=== PATIENT | female | born 1935 | race Caucasian/White ===

== ENCOUNTER 2017-02-26 19:30 | Emergency (ER) | payer MEDICARE, BC ==
[2017-02-26] MEDS ORDERED: Ketorolac 30 MG/ML SDV IM ONE (19:42)
[2017-02-26] MEDS ORDERED: Cyclobenzaprine 10 MG Tab PO ONE (20:39)
[2017-02-26] MEDS ORDERED: Take Home: Cyclobenzaprine 10 MG Tab, 4 Tab Pack PO ONE (21:20)
--- NOTE | 2017-02-26 21:20 | EDM.PDOC ---
ED HPI GENERAL MEDICAL PROBLEM - General Chief Complaint: Lower Extremity Injury/Pain Stated Complaint: right hip pain Time Seen by Provider: 02/26/17 19:32 Source of Information: Reports: Patient, Family History Limitations: Reports: No Limitations - History of Present Illness INITIAL COMMENTS - FREE TEXT/NARRATIVE: Patient arrives in the emergency room via private vehicle driven by her . She did have a right hip replacement 2 weeks ago. She states she has not had any problems since her operation. She has not been taking any pain medications due to it making her nauseous. She reports that she suddenly had extreme right hip pain that went down her leg laterally to about her knee. She is doing physical therapy and was told that she has pretty tight hamstrings. She rates her pain a 10 out of 10. She denies headache, shortness of breath, chills, fever, redness or swelling to her right hip surgical area, she reports no drainage or opening of her incision. She has a difficult time arising out of a chair and walking. Onset: Today, Sudden Location: Reports: Upper Extremity, Right Quality: Reports: Ache, Sharp Severity: Severe Improves with: Reports: Rest Worsens with: Reports: Movement Associated Symptoms: Reports: No Other Symptoms - Related Data Allergies Allergy/AdvReac Type Severity Reaction Status Date / Time adhesive Allergy Rash Verified 02/26/17 20:11 Home Meds: Home Meds Cholecalciferol (Vitamin D3) [Vitamin D3] 2,000 unit PO DAILY 06/04/13 [History] Enalapril [Vasotec] 1.5 tab PO DAILY 06/04/13 [History] Lansoprazole [Prevacid] 15 mg PO DAILY 06/04/13 [History] Latanoprost [Xalatan 0.005% Ophth Soln] 1 drop EYEBOTH ACBED 06/04/13 [History] Metoprolol Tartrate [Lopressor] 25 mg PO BID 06/04/13 [History] Multivitamin [Multi Vitamin Daily] 1 each PO DAILY 06/04/13 [History] [place]-3 Fatty Acids [[place]-3] 1,000 mg PO DAILY 06/04/13 [History] PEG 400/Propylene Glycol [Systane 0.4-0.3%] 1 drop EYEBOTH Q4H PRN 06/04/13 [ History] Anastrozole [Arimidex] 1 mg PO DAILY 02/18/17 [History] Apixaban [Eliquis] 1 tab PO DAILY 02/18/17 [History] Polyethylene Glycol 3350 [MiraLAX] 17 gm PO DAILY PRN 02/18/17 [History] oxyCODONE HCl [Oxycodone HCl] 5 mg PO ASDIRECTED PRN 02/18/17 [History] Past Medical History Cardiovascular History: Reports: Afib Genitourinary History: Reports: Chronic Renal Insuffiency Neurological History: Reports: Parkinson's Oncologic (Cancer) History: Reports: Breast Other Oncologic History: lymphedema - Past Surgical History Musculoskeletal Surgical History: Reports: Hip Replacement Social & Family History - Tobacco Use Smoking Status *Q: Never Smoker - Alcohol Use Days Per Week of Alcohol Use: 0 - Recreational Drug Use Recreational Drug Use: No Review of Systems - Review of Systems Review Of Systems: ROS reveals no pertinent complaints other than HPI. ED EXAM, GENERAL - Physical Exam Exam: See Below Exam Limited By: No Limitations General Appearance: Alert, WD/WN, Moderate Distress Ears: Normal External Exam, Normal Canal, Hearing Grossly Normal, Normal TMs Head: Atraumatic, Normocephalic Neck: Normal Inspection, Supple, Non-Tender, Full Range of Motion Respiratory/Chest: No Respiratory Distress, Lungs Clear, Normal Breath Sounds, No Accessory Muscle Use, Chest Non-Tender Cardiovascular: Normal Peripheral Pulses, Regular Rate, Rhythm, No Edema, No Gallop, No JVD, No Murmur, No Rub Peripheral Pulses: 2+: Posterior Tibial (L), Posterior Tibial (R), Dorsalis Pedis (L), Dorsalis Pedis (R) GI/Abdominal: Normal Bowel Sounds, Soft, Non-Tender, No Organomegaly, No Distention, No Abnormal Bruit, No Mass Extremities: Pedal Edema Neurological: Alert, Oriented, CN II-XII Intact, Normal Cognition, Normal Gait, Normal Reflexes, No Motor/Sensory Deficits Psychiatric: Normal Affect, Normal Mood Skin Exam: Warm, Dry, Intact, Normal Color, No Rash, Other (wound is C/D/I with no erythema or edema) Lymphatic: No Adenopathy Course - Orders/Labs/Meds Orders: Active Orders 24 hr Category Date Time Status Hip Min 2V or 3V w Pelvis Rt [CR] Stat Exams 02/26/17 19:33 Ordered Meds: Medications Discontinued Medications Generic Name Dose Route Start Last Admin Trade Name Sam PRN Reason Stop Dose Admin Cyclobenzaprine HCl 10 mg 02/26/17 20:39 02/26/17 20:58 Flexeril PO 02/26/17 20:40 10 mg ONETIME ONE Administration Ketorolac Tromethamine 30 mg 02/26/17 19:42 02/26/17 20:07 Toradol IM 02/26/17 19:43 30 mg ONETIME ONE Administration Orphenadrine Citrate 60 mg 02/26/17 20:45 Norflex IM Q12H ANABEL Orphenadrine Citrate 60 mg 02/26/17 20:51 02/26/17 20:58 Norflex IM 02/26/17 20:52 60 mg ONETIME ONE Administration - Re-Assessments/Exams Free Text/Narrative Re-Assessment/Exam: 02/26/17 22:38 X-ray showed no fracture or displacement of hardware. Departure - Departure Time of Disposition: 21:30 Disposition: Home, Self-Care 01 Condition: Good Clinical Impression: Muscle spasms of lower extremity - Discharge Information Instructions: Muscle Cramps and Spasms, [id number] Additional Instructions: Your x-ray tonight did not show any fractures or loosening of your hip hardware. This is likely muscle spasms due to recent trauma from surgery. You can alternate ice and heat, use a topical analgesic like aspercreme or lidocaine patch. Visit with your physical therapist regarding additional stretches you can do for your hamstring, buttocks, and back. Make sure you are walking and moving around as much as you can tolerate. Alternate ibuprofen and tylenol. You can safely take up to 4,000 mg of tylenol daily. If needed you can take up to 800 mg of ibuprofen every 8 hours. Follow up with your primary doctor or with orthopedics as needed for additional symptom management. I have given you prescriptions for a medrol dose pack and flexeril. Take the medrol dose pack everyday until it is finished. The flexeril is for every 8 hours. Please don't hesitate to call with any questions or concerns. - Problem List & Annotations (1) Muscle spasms of lower extremity SNOMED Code(s): 20472392 Code(s): M62.838 - OTHER MUSCLE SPASM Status: Acute Current Visit: Yes Qualifiers: Laterality: right Qualified Code(s): M62.838 - Other muscle spasm - Problem List Review Problem List Initiated/Reviewed/Updated: Yes - My Orders Last 24 Hours: My Active Orders 02/26/17 19:33 Hip Min 2V or 3V w Pelvis Rt [CR] Stat - Assessment/Plan Last 24 Hours: My Active Orders 02/26/17 19:33 Hip Min 2V or 3V w Pelvis Rt [CR] Stat Assessment:: right hip muscle spasms Plan: Your x-ray tonight did not show any fractures or loosening of your hip hardware. This is likely muscle spasms due to recent trauma from surgery. You can alternate ice and heat, use a topical analgesic like aspercreme or lidocaine patch. Visit with your physical therapist regarding additional stretches you can do for your hamstring, buttocks, and back. Make sure you are walking and moving around as much as you can tolerate. Alternate ibuprofen and tylenol. You can safely take up to 4,000 mg of tylenol daily. If needed you can take up to 800 mg of ibuprofen every 8 hours. Follow up with your primary doctor or with orthopedics as needed for additional symptom management. I have given you prescriptions for a medrol dose pack and flexeril. Take the medrol dose pack everyday until it is finished. The flexeril is for every 8 hours. Please don't hesitate to call with any questions or concerns.
[2017-02-27 05:13] VITALS: BP 147/96
== END 2017-02-26 21:30 | disposition home or self-care (01) ==
LOC: VM.ED 19:30
DX: M62.838 Other muscle spasm (principal); N18.9 Chronic kidney disease, unspecified; Z96.641 Presence of right artificial hip joint; Z79.899 Other long term (current) drug therapy; Z91.048 Other nonmedicinal substance allergy status
CPT/HCPCS: 73502; 96372; 99283; A9270; J1885; J2360

== ENCOUNTER 2017-04-07 12:38 | Emergency (ER) | payer MEDICARE, BC ==
[2017-04-07 12:56] VITALS: BP 123/71
[2017-04-07] MEDS ORDERED: Take Home: Sulfamethoxazole/Trimethoprim 800-160 MG Tab, 2 Tab Pack PO ONE (13:34)
--- NOTE | 2017-04-07 13:41 | EDM.PDOC ---
ED HPI GENERAL MEDICAL PROBLEM - General Chief Complaint: Genitourinary Problem Stated Complaint: POSSIBLE UTI Time Seen by Provider: 04/07/17 12:50 Source of Information: Reports: Patient History Limitations: Reports: No Limitations - History of Present Illness Onset: Sudden Quality: Reports: Burning Severity: Moderate - Related Data Allergies Allergy/AdvReac Type Severity Reaction Status Date / Time adhesive Allergy Rash Verified 04/07/17 13:03 hydrocodone Allergy Confusion Verified 04/07/17 13:03 Home Meds: Home Meds Cholecalciferol (Vitamin D3) [Vitamin D3] 2,000 unit PO DAILY 06/04/13 [History] Enalapril [Vasotec] 1.5 tab PO DAILY 06/04/13 [History] Latanoprost [Xalatan 0.005% Ophth Soln] 1 drop EYEBOTH ACBED 06/04/13 [History] Multivitamin [Multi Vitamin Daily] 1 each PO DAILY 06/04/13 [History] [place]-3 Fatty Acids [Rotan-3] 1,000 mg PO DAILY 06/04/13 [History] PEG 400/Propylene Glycol [Systane 0.4-0.3%] 1 drop EYEBOTH Q4H PRN 06/04/13 [ History] Anastrozole [Arimidex] 1 mg PO DAILY 02/18/17 [History] Apixaban [Eliquis] 1 tab PO DAILY 02/18/17 [History] Carbidopa/Levodopa [Sinemet 25-100 mg Tablet] 1 each PO TID 04/07/17 [History] Carbidopa/Levodopa [Sinemet Cr 50-200 Tablet] 1 each PO BEDTIME 04/07/17 [ History] Diltiazem HCl [Cardizem Cd] 180 mg PO DAILY 04/07/17 [History] Famotidine [Pepcid] 10 mg PO DAILY 04/07/17 [History] Ferrous Gluconate 324 mg PO BEDTIME 04/07/17 [History] Metoprolol Succinate [Toprol XL] 200 mg PO DAILY 04/07/17 [History] Pramipexole Di-HCl [Mirapex] 0.25 mg PO ASDIRECTED 04/07/17 [History] atorvaSTATin [Lipitor] 10 mg PO DAILY 04/07/17 [History] Past Medical History HEENT History: Reports: Cataract, Glaucoma Cardiovascular History: Reports: Afib, High Cholesterol, Hypertension Respiratory History: Reports: Sleep Apnea Gastrointestinal History: Reports: Diverticulosis Genitourinary History: Reports: Chronic Renal Insuffiency Neurological History: Reports: Parkinson's Endocrine/Metabolic History: Reports: Osteopenia Oncologic (Cancer) History: Reports: Breast, Renal Other Oncologic History: lymphedema - Infectious Disease History Infectious Disease History: Reports: C-Difficile - Past Surgical History GI Surgical History: Reports: Appendectomy, Cholecystectomy, Hernia Repair/Other Musculoskeletal Surgical History: Reports: Hip Replacement Social & Family History - Tobacco Use Smoking Status *Q: Unknown Ever Smoked - Alcohol Use Days Per Week of Alcohol Use: 0 - Recreational Drug Use Recreational Drug Use: No ED ROS GENERAL - Review of Systems Review Of Systems: See Below Constitutional: Reports: No Symptoms HEENT: Reports: No Symptoms Respiratory: Reports: No Symptoms Cardiovascular: Reports: No Symptoms Endocrine: Reports: No Symptoms : Reports: Dysuria, Frequency, Hematuria, Pain, Urgency Musculoskeletal: Reports: No Symptoms Skin: Reports: No Symptoms ED EXAM, RENAL/ - Physical Exam Exam: See Below Exam Limited By: No Limitations General Appearance: Alert, WD/WN, No Apparent Distress Head: Atraumatic, Normocephalic Respiratory/Chest: No Respiratory Distress, Lungs Clear, No Accessory Muscle Use , Chest Non-Tender Cardiovascular: Normal Peripheral Pulses, Regular Rate, Rhythm GI/Abdominal: Normal Bowel Sounds, Soft, Non-Tender Extremities: Normal Inspection, Normal Range of Motion Neurological: Alert, Oriented Psychiatric: Normal Affect, Normal Mood Skin Exam: Warm, Dry, Intact, Normal Color Course - Vital Signs Last Recorded V/S: Last Vital Signs Temp 36.4 C 04/07/17 12:40 Pulse 85 04/07/17 12:40 Resp 16 04/07/17 12:40 BP 123/71 04/07/17 12:40 Pulse Ox 98 04/07/17 12:40 - Orders/Labs/Meds Orders: Active Orders 24 hr Category Date Time Status CULTURE URINE [RM] Stat Lab 04/07/17 13:08 Received Sulfamethoxazole/Trimethoprim [Take Home: Sulfameth/ Med 04/07/17 13:34 Once Trimet 800-160MG, 2 Pack] 3 packet PO ONETIME ONE Medication Orders Trimethoprim/Sulfamethoxazole (Take Home: Sulfameth/Trimet 800-160mg, 2 Pack) 3 packet PO ONETIME ONE Stop: 04/07/17 13:35 Labs: Laboratory Tests 04/07/17 Range/Units 13:08 Urine Color Yellow (YELLOW) Urine Appearance Turbid H (CLEAR) Urine pH 7.5 (5.0-8.0) Ur Specific [place] 1.020 Urine Protein >=300 H (NEGATIVE) mg/dL Urine Glucose (UA) Negative (NEGATIVE) mg/dL Urine Ketones Negative (NEGATIVE) mg/dL Urine Occult Blood Moderate H (NEGATIVE) Urine Nitrite Negative (NEGATIVE) Urine Bilirubin Negative (NEGATIVE) Urine Urobilinogen 0.2 (0.2) EU/dL Ur Leukocyte Esterase Large H (NEGATIVE) Urine RBC 10-20 H (NOT SEEN) /HPF Urine WBC Packed (NOT SEEN) /HPF Ur Squamous Epith Cells Few H (NEGATIVE) /HPF Urine Bacteria Moderate H (NEGATIVE) /HPF Urine Mucus Not seen (NEGATIVE) /LPF Meds: Medications Generic Name Dose Route Start Last Admin Trade Name Freq PRN Reason Stop Dose Admin Trimethoprim/Sulfamethoxazole 3 packet 04/07/17 13:34 Take Home: Sulfameth/Trimet 800-160mg, 2 Pack PO 04/07/17 13:35 ONETIME ONE Departure - Departure Time of Disposition: 13:42 Disposition: Home, Self-Care 01 Condition: Good Clinical Impression: UTI, Urinary tract infectious disease - Discharge Information Instructions: Urinary Tract Infection, Adult, [id number] Referrals: Melissa Smith DO [Primary Care Provider] - Additional Instructions: Increase her water intake Decrease caffeine beverages Can take [id number] Azo if needed for pain Urine culture has been sent will follow-up with a phone call in 3-5 days if antibiotic is needed to be switched Follow up with PCP if symptoms do not resolve after taking the medication - My Orders Last 24 Hours: My Active Orders 04/07/17 13:08 CULTURE URINE [RM] Stat 04/07/17 13:34 Sulfamethoxazole/Trimethoprim [Take Home: Sulfameth/Trimet 800-160MG, 2 Pack] 3 packet PO ONETIME ONE - Assessment/Plan Last 24 Hours: My Active Orders 04/07/17 13:08 CULTURE URINE [RM] Stat 04/07/17 13:34 Sulfamethoxazole/Trimethoprim [Take Home: Sulfameth/Trimet 800-160MG, 2 Pack] 3 packet PO ONETIME ONE
== END 2017-04-07 13:55 | disposition home or self-care (01) ==
LOC: VM.ED 12:38
DX: N39.0 Urinary tract infection, site not specified (principal); E78.00 Pure hypercholesterolemia, unspecified; I12.9 Hypertensive chronic kidney disease with stage 1 through stage 4 chronic kidney disease, or unspecified chronic kidney disease; N18.9 Chronic kidney disease, unspecified; Z79.899 Other long term (current) drug therapy; Z88.5 Allergy status to narcotic agent
CPT/HCPCS: 81001; 87086; 99283; A9270; 87088; 87186

== ENCOUNTER 2020-06-01 10:56 | Observation (INO) | payer MEDICARE, BC ==
[2020-06-01] MEDS ORDERED: Acetaminophen 325 MG Tab PO PRN ×2 (12:11→15:40)
[2020-06-01] MEDS ORDERED: Sodium Chloride 0.9% 10 ML Syringe FLUSH PRN (12:11)
[2020-06-01 13:03] LABS: ANION GAP 9.7 mmol/L (5-15); CHLORIDE,CL 100 mmol/L (98-107); SODIUM,NA 138 mmol/L (136-145)
[2020-06-01] MEDS ORDERED: Hypromellose 0.3% Ophth Soln 15 ML Bottle EYEBOTH PRN (15:40)
[2020-06-01] MEDS ORDERED: Carbidopa/Levodopa 25-100 MG Tab PO PRN (15:46)
[2020-06-01] MEDS ORDERED: Carbidopa/Levodopa 50-200 MG Tab.ER PO PRN (15:48)
[2020-06-01] MEDS: Carbidopa/Levodopa 25-100 MG Tab PO SCH (16:14)
[2020-06-01] MEDS: Pregabalin 50 MG Cap PO SCH ×2 (16:14→19:45)
[2020-06-01] MEDS ORDERED: Melatonin 3 MG Tab PO SCH (20:00)
[2020-06-01] MEDS ORDERED: Latanoprost 0.005% Ophth Soln 2.5 ML Bottle EYEBOTH SCH (20:00)
[2020-06-01] MEDS ORDERED: Carbidopa/Levodopa 50-200 MG Tab.ER PO SCH (20:00)
[2020-06-02] MEDS: Carbidopa/Levodopa 25-100 MG Tab PO SCH (06:49)
[2020-06-02 07:05] LABS: ANION GAP 8.9 mmol/L (5-15)
--- NOTE | 2020-06-02 07:53 | CR ---
[id number] RAD/RAD Chest PA or AP 1V EXAM: RAD Chest PA or AP 1V INDICATION: SHORTNESS OF BREATH COMPARISON: March 2009 DISCUSSION: Subtle groundglass opacity in both lung bases with blunting of the costophrenic sulci. Findings suggest small effusions. Cardiomegaly and central vascular congestion. Findings are most consistent with mild/early changes of fluid retention the chest. No evidence of pneumonia. No pneumothorax. IMPRESSION: As above. Steven Lopez MD 06/02/20 0751 Thank you for allowing us to participate in the care of your patient.
[2020-06-02] MEDS ORDERED: Metoprolol Succinate 50 MG Tab.ER PO SCH (08:00)
[2020-06-02] MEDS ORDERED: Sertraline 25 MG Tab PO SCH (08:00)
[2020-06-02] MEDS ORDERED: Diltiazem 180 MG Cap.CD PO SCH (08:00)
[2020-06-02 08:25] VITALS: BP 136/83; PULSE 107
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
--- NOTE | 2020-06-03 00:35 | DISCH ---
PRIMARY DISCHARGE DIAGNOSES: 1. Bright red blood per rectum, likely lower gastrointestinal bleeding, stopped on admission, but the patient was on anticoagulation. 2. Atrial fibrillation, on Eliquis. 3. Parkinson disease. 4. Slight increased shortness of breath with known history of mitral stenosis, on Lasix, but no history of heart failure. 5. Mild intermittent asthma. 6. Essential hypertension. 7. Hyperlipidemia. 8. Chronic kidney disease, stage 3. 9. Remote history of renal cell cancer and breast cancer in remission. 10.Obstructive sleep apnea. 11.History of tubular adenoma of the colon back in 2013 and patient has declined further followup. REASON FOR ADMISSION: On the date of admission, this 85-year-old female came to the clinic with her as she had passed bright red blood 5 times over the last 24 hours and also had some bleeding in her underwear which was felt to be coming from her rectum. She had some crampy lower abdominal pain, but no rectal pain. She was feeling a little weaker. The patient was admitted for observation and monitoring. She had lab work showing her hemoglobin at 12, then repeated later at 12.0 and then 11.9. She had a chest x-ray which was showing some slight opacities in both lung bases with some central vascular congestion. Her proBNP was checked this morning and was 3500. We had not given her any fluids, but we had held her Lasix which was restarted on discharge. Her creatinine was excellent at 0.9 on discharge. Her blood pressure was excellent. She had no events during her stay and was planned to be discharged home for close outpatient followup. PHYSICAL EXAMINATION: Vital Signs: Discharge vitals included temperature of 98.7, pulse 75, blood pressure 116/65, respiratory rate 19, and O2 of 94% on room air. General: She is in no acute distress. Heart: Irregularly irregular with murmur. Lungs: Lung sounds are clear to auscultation bilaterally without crackles or wheezes. Abdomen: Positive bowel sounds. Soft, nondistended, nontender. Extremities: Warm and dry. No edema. Mental Status: Alert and orientated x3. DISCHARGE PLANS AND INSTRUCTIONS: She will follow up in the clinic on her previously scheduled date of the with a BMP and CBC at that time. I did elect to keep her Lasix dose the same, but would consider an increase. The patient has also not had a followup echo and she possibly has some chronic diastolic heart failure, although the Lasix was being used for hypertension. Her EF is known to be 65% back in 2019. The patient will also hold her Eliquis. No aspirin is started. Discussed the risks and benefits of holding the medication including the stroke risk and she is electing to proceed. She will avoid constipation by encouraging more fluids and foods in her diet that helped to promote that. If she has severe bleeding or diarrhea, she will return. She wants to wait on scheduling a colonoscopy for now. MKA: 06/02/2020 17:16:52 MODL: 06/03/2020 00:25:36 /[id number] MTDLeander
== END 2020-06-02 09:35 | disposition home or self-care (01) ==
LOC: PREINTOOBSV 10:56 → UNDOADMIN 11:41 → VM.MS 11:41 → UNDODISIN 06-02 09:35
PROVIDERS: ADMIT Internal Medicine; ATTEND Internal Medicine
DX: K62.5 Hemorrhage of anus and rectum (principal); J45.20 Mild intermittent asthma, uncomplicated; G47.33 Obstructive sleep apnea (adult) (pediatric); I48.19 Other persistent atrial fibrillation; E78.5 Hyperlipidemia, unspecified; I12.9 Hypertensive chronic kidney disease with stage 1 through stage 4 chronic kidney disease, or unspecified chronic kidney disease; N18.30 Chronic kidney disease, stage 3 unspecified; G20 Parkinson's disease; Z20.822 Contact with and (suspected) exposure to COVID-19; Z85.3 Personal history of malignant neoplasm of breast; Z85.528 Personal history of other malignant neoplasm of kidney; Z86.010 Personal history of colon polyps; Z79.01 Long term (current) use of anticoagulants; Z88.5 Allergy status to narcotic agent; Z91.09 Other allergy status, other than to drugs and biological substances; Z79.899 Other long term (current) drug therapy; Z98.890 Other specified postprocedural states; Z80.0 Family history of malignant neoplasm of digestive organs
CPT/HCPCS: 36415; 71045; 80048; 80053; 83880; 85014; 85018; 85025; 85610; 85652; A9270-GY; G0378; U0002

== ENCOUNTER 2020-06-08 10:23 | Emergency (ER) | payer MEDICARE, BC ==
--- NOTE | 2020-06-08 11:12 | PCM.EKG ---
#1 Interpretation EKG Date: 06/08/20 Time: 11:01 Rhythm: A-Fib Rate (Beats/Min): 101 [place]: Normal P-Wave: Variable QRS: RBBB ST-T: Normal QT: Normal Comparison: No Change
[2020-06-08 11:31] LABS: CHLORIDE,CL 104 mmol/L (98-107); SODIUM,NA 145 mmol/L (136-145)
[2020-06-08 11:32] LABS: ANION GAP 13.1 mmol/L (5-15)
--- NOTE | 2020-06-08 11:53 | CT ---
[id number] CT/CT Head WO IV EXAM: NONCONTRAST HEAD CT INDICATION: ACUTE CONFUSION COMPARISON: None. DISCUSSION: There is mild generalized atrophy. Mild multifocal white matter hypoattenuation is nonspecific, but generally ascribed to chronic small vessel ischemia. No mass effect or midline shift. No acute hemorrhage or extra-axial fluid collection. No acute territorial infarct is identified. A limited look at the orbits and paranasal sinuses is unremarkable. IMPRESSION: 1. No acute findings. Yuri Perez MD 06/08/20 [id number] Thank you for allowing us to participate in the care of your patient.
[2020-06-08] MEDS ORDERED: Cephalexin 500 MG Cap PO ONE (12:09)
--- NOTE | 2020-06-08 12:11 | EDM.PDOC ---
ED HPI GENERAL MEDICAL PROBLEM - General Chief Complaint: Neuro Symptoms/Deficits Stated Complaint: ER Time Seen by Provider: 06/08/20 10:24 Source of Information: Reports: Patient, Family History Limitations: Reports: No Limitations - History of Present Illness INITIAL COMMENTS - FREE TEXT/NARRATIVE: Patient comes emergency department today from the clinic after being referred with concerns of confusion. This patient since approximately [id number] hours last night started being more forgetful. She could not remember which drawer her underwear or socks are in. She would go into her room and not remember why she went into the room. This is something new for her. She went to bed and woke up this morning and had similar symptoms of trying to remember where things were in her house that she could not. She initially gone to the clinic and they referred her to the emergency department. Upon arrival the patient denies any confusion. No headache no double vision or blurry vision. No weakness dizziness lightheadedness. No palpitations no syncope. No paresthesias of her upper or lower extremities. No change in the functionality of her upper or lower extremities. She is able to ambulate without difficulty. She denies any chest pain shortness of breath difficulty breathing. No fever no chills. No abdominal pain no nausea no vomiting. She does complain of increased urinary frequency without dysuria. No hematuria. No black or tarry stools. No Covid exposure no Covid symptoms. She did recently discontinue her Eliquis due to rectal bleeding and will not be restarting it due to bleeding risk. - Related Data Allergies Allergy/AdvReac Type Severity Reaction Status Date / Time adhesive Allergy Rash Verified 06/08/20 12:28 hydrocodone AdvReac Confusion Verified 06/08/20 12:28 Home Meds: Home Meds Cholecalciferol (Vitamin D3) [Vitamin D3] 2,000 unit PO DAILY 06/04/13 [History] Enalapril [Vasotec] 1.5 tab PO DAILY 06/04/13 [History] Latanoprost [Xalatan 0.005% Ophth Soln] 1 drop EYEBOTH ACBED 06/04/13 [History] Multivitamin [Multi-Vitamin Daily] 1 each PO DAILY 06/04/13 [History] PEG 400/Propylene Glycol [Systane Lubricant] 1 drop EYEBOTH Q4H PRN 06/04/13 [History] Carbidopa/Levodopa [Sinemet 25-100 mg Tablet] 1 each PO TID 04/07/17 [History] Carbidopa/Levodopa [Sinemet CR 50-200] 1 each PO BEDTIME 04/07/17 [History] Metoprolol Succinate [Toprol XL] 200 mg PO DAILY 04/07/17 [History] atorvaSTATin [Lipitor] 10 mg PO DAILY 04/07/17 [History] dilTIAZem HCL [Cardizem Cd] 180 mg PO DAILY 04/07/17 [History] Acetaminophen [Tylenol] 500 mg PO Q4HR PRN 06/01/20 [History] Calcium Carbonate [Tums] 500 mg PO QID PRN 06/01/20 [History] Calcium Citrate 200 mg PO BID 06/01/20 [History] Furosemide [Lasix] 20 mg PO DAILY 06/01/20 [History] Melatonin 3 mg PO BEDTIME 06/01/20 [History] Pregabalin [Lyrica] 50 mg PO ASDIRECTED 06/01/20 [History] Sertraline [Zoloft] 25 mg PO DAILY 06/01/20 [History] cephALEXin [Cephalexin] 500 mg PO QID #20 tablet 06/08/20 [Rx] Past Medical History HEENT History: Reports: Cataract, Glaucoma Cardiovascular History: Reports: Afib, High Cholesterol, Hypertension Respiratory History: Reports: Sleep Apnea Gastrointestinal History: Reports: Diverticulosis Genitourinary History: Reports: Chronic Renal Insuffiency Neurological History: Reports: Parkinson's Endocrine/Metabolic History: Reports: Osteopenia Oncologic (Cancer) History: Reports: Breast, Renal Other Oncologic History: lymphedema - Infectious Disease History Infectious Disease History: Reports: C-Difficile - Past Surgical History GI Surgical History: Reports: Appendectomy, Cholecystectomy, Hernia Repair/Other Musculoskeletal Surgical History: Reports: Hip Replacement Social & Family History - Caffeine Use Caffeine Use: Reports: Coffee Caffeine Use Comment: daily at breakfast ED ROS GENERAL - Review of Systems Review Of Systems: Comprehensive ROS is negative, except as noted in HPI. ED EXAM, NEURO - Physical Exam Exam: See Below Exam Limited By: No Limitations General Appearance: Alert, WD/WN, No Apparent Distress Eye Exam: Bilateral Eye: EOMI, PERRL (3mm deanna brisk bilat) Ears: Normal External Exam, Normal TMs Nose: Normal Inspection, Normal Mucosa, No Blood Throat/Mouth: Normal Inspection, Normal Lips Head Exam: Atraumatic, Normocephalic Neck: Normal Inspection, Supple, Non-Tender, Full Range of Motion Respiratory/Chest: No Respiratory Distress, Lungs Clear, Normal Breath Sounds, No Accessory Muscle Use, Chest Non-Tender Cardiovascular: Normal Peripheral Pulses, No Edema, Irregularly Irregular GI/Abdominal: Normal Bowel Sounds, Soft, Non-Tender (Female) Exam: Deferred Rectal (Female) Exam: Deferred Neurological: Alert, Normal Mood/Affect, Normal Dorsiflexion, CN II-XII Intact, Normal Plantar Flexion, Normal Gait, Normal Reflexes, No Motor/Sensory Deficits, Oriented x 3, Other (NIH scale of 0. ) DTR: 2+: Bicep (R), Bicep (L), Patella (R), Patella (L), Achilles (R), Achilles (L) Back Exam: Normal Inspection, Full Range of Motion Extremities: Normal Inspection, Normal Range of Motion, Non-Tender, No Pedal Edema, Normal Capillary Refill Psychiatric: Normal Affect, Normal Mood Skin Exam: Warm, Dry, Intact, Normal Color, No Rash Course - Vital Signs Last Recorded V/S: Last Vital Signs Temp 98.8 F 06/08/20 10:28 Pulse 90 06/08/20 11:36 Resp 14 06/08/20 10:28 BP 149/97 H 06/08/20 11:36 Pulse Ox 96 06/08/20 10:28 - Orders/Labs/Meds Labs: Laboratory Tests 06/08/20 06/08/20 06/08/20 Range/Units 11:05 11:05 11:05 WBC 5.1 (4.0-10.0) x10^3/uL RBC 4.60 (4.00-5.50) x10^6/uL Hgb 14.2 D (12.0-16.0) g/dL Hct 43.0 (33.0-47.0) % MCV 93.5 H (78.0-93.0) fL MCH 30.9 (26.0-32.0) pg MCHC 33.0 (32.0-36.0) g/dL RDW Coeff of Nataly 13.6 (10.0-15.0) % Plt Count 218 (130-400) x10^3/uL Neut % (Auto) 72.3 (50.0-80.0) % Lymph % (Auto) 20.8 L (25.0-50.0) % [place] % (Auto) 6.1 (2.0-11.0) % Eos % (Auto) 0.6 (0.0-4.0) % Baso % (Auto) 0.2 (0.2-1.2) % PT 11.2 (9.9-12.5) SEC INR 1.0 L (2.0-3.5) APTT 25.0 L (25.6-32.8) SEC Sodium 145 (136-145) mmol/L Potassium 4.1 (3.5-5.1) mmol/L Chloride 104 (98-107) mmol/L Carbon Dioxide 32 (21-32) mmol/L Anion Gap 13.1 (5-15) mmol/L BUN 14 (7-18) mg/dL Creatinine 1.0 (0.55-1.02) mg/dL Est Cr Clr Drug Dosing TNP Estimated GFR (MDRD) 53 Glucose 112 H (70-99) mg/dL Calcium 9.8 D (8.5-10.1) mg/dL Corrected Calcium 10.12 H (8.5-10.1) mg/dL Total Bilirubin 0.8 (0.2-1.0) mg/dL AST 15 (15-37) U/L ALT 9 L (14-59) U/L Alkaline Phosphatase 86 (46-116) U/L Troponin I High Sens 29 (<=51) ng/L Total Protein 7.4 (6.4-8.2) g/dL Albumin 3.6 (3.4-5.0) g/dL Globulin 3.8 Albumin/Globulin Ratio 0.95 Urine Color (YELLOW) Urine Appearance (CLEAR) Urine pH (5.0-8.0) Ur Specific [place] Urine Protein (NEGATIVE) mg/dL Urine Glucose (UA) (NEGATIVE) mg/dL Urine Ketones (NEGATIVE) mg/dL Urine Occult Blood (NEGATIVE) Urine Nitrite (NEGATIVE) Urine Bilirubin (NEGATIVE) Urine Urobilinogen (0.2) EU/dL Ur Leukocyte Esterase (NEGATIVE) Urine RBC (NOT SEEN) /HPF Urine WBC (NOT SEEN) /HPF Ur Squamous Epith Cells (NOT SEEN) /HPF Ur Renal Epithelial Cell (NOT SEEN) /HPF Urine Bacteria (NOT SEEN) /HPF Urine Mucus (NOT SEEN) /LPF 06/08/20 Range/Units 11:40 WBC (4.0-10.0) x10^3/uL RBC (4.00-5.50) x10^6/uL Hgb (12.0-16.0) g/dL Hct (33.0-47.0) % MCV (78.0-93.0) fL MCH (26.0-32.0) pg MCHC (32.0-36.0) g/dL RDW Coeff of Nataly (10.0-15.0) % Plt Count (130-400) x10^3/uL Neut % (Auto) (50.0-80.0) % Lymph % (Auto) (25.0-50.0) % [place] % (Auto) (2.0-11.0) % Eos % (Auto) (0.0-4.0) % Baso % (Auto) (0.2-1.2) % PT (9.9-12.5) SEC INR (2.0-3.5) APTT (25.6-32.8) SEC Sodium (136-145) mmol/L Potassium (3.5-5.1) mmol/L Chloride (98-107) mmol/L Carbon Dioxide (21-32) mmol/L Anion Gap (5-15) mmol/L BUN (7-18) mg/dL Creatinine (0.55-1.02) mg/dL Est Cr Clr Drug Dosing Estimated GFR (MDRD) Glucose (70-99) mg/dL Calcium (8.5-10.1) mg/dL Corrected Calcium (8.5-10.1) mg/dL Total Bilirubin (0.2-1.0) mg/dL AST (15-37) U/L ALT (14-59) U/L Alkaline Phosphatase (46-116) U/L Troponin I High Sens (<=51) ng/L Total Protein (6.4-8.2) g/dL Albumin (3.4-5.0) g/dL Globulin Albumin/Globulin Ratio Urine Color Yellow (YELLOW) Urine Appearance Clear (CLEAR) Urine pH 5.5 (5.0-8.0) Ur Specific [place] 1.010 Urine Protein Negative (NEGATIVE) mg/dL Urine Glucose (UA) Negative (NEGATIVE) mg/dL Urine Ketones Negative (NEGATIVE) mg/dL Urine Occult Blood Negative (NEGATIVE) Urine Nitrite Negative (NEGATIVE) Urine Bilirubin Negative (NEGATIVE) Urine Urobilinogen 0.2 (0.2) EU/dL Ur Leukocyte Esterase Moderate H (NEGATIVE) Urine RBC 0-5 (NOT SEEN) /HPF Urine WBC 10-20 H (NOT SEEN) /HPF Ur Squamous Epith Cells Moderate H (NOT SEEN) /HPF Ur Renal Epithelial Cell Few H (NOT SEEN) /HPF Urine Bacteria Few H (NOT SEEN) /HPF Urine Mucus Rare H (NOT SEEN) /LPF Meds: Medications Discontinued Medications Generic Name Dose Route Start Last Admin Trade Name Freq PRN Reason Stop Dose Admin Cephalexin 500 mg 06/08/20 12:09 06/08/20 12:15 Cephalexin 500 Mg Cap PO 06/08/20 12:10 500 mg ONETIME ONE Administration - Radiology Interpretation Free Text/Narrative:: CT of the head per radiology no acute findings. - Re-Assessments/Exams Free Text/Narrative Re-Assessment/Exam: Stroke code was not called as the symptoms have been going on almost 16 hours although a work up for it will be completed. She has had no rectal bleeding since being off the Eliquis. CT of the head negative per radiology. Laboratory evaluation: WBC 5.1, hemoglobin 14.2, platelets 218. PT 11.2 INR 1.0,. CMP with a glucose of 112 creatinine normal at 1.0 with a BUN of 14 liver enzymes are normal Troponin high-sensitivity normal at 29. Urinalysis moderate leukocyte esterase negative nitrites 10-20 WBCs. Other than the small amount of forgetfulness that she is having she has no other neurological signs of a stroke. Although she is in atrial fibrillation and off her Eliquis but she clearly has an infectious process in her urinary tract and be leading to her small amount of forgetfulness. Her NIH stroke scale is zero. I discussed with the patient if you would like further evaluation for stroke to include possible transfer to [place] in [place] she denied this at that time. Which I think is appropriate as we did find a site of infection this could be causing her small amount of forgetfulness and with her otherwise normal neurological exam in the emergency department among concern for stroke at this time. We will start her on antibiotics. She does have follow-up with her primary care provider on Sunday. For recheck. Anything new or worse she is to recheck sooner. 06/09/20 16:47 I did call the patient at this time in this date to recheck and see how her symptoms are. She is at home. Her forgetfulness has resolved. She denies any neurological changes. She is able to ambulate she has no paresthesias no visual disturbances and she is feeling quite a bit better than yesterday. She is going to keep her follow-up appoint with her primary care on Sunday. Departure - Departure Time of Disposition: 12:07 Disposition: Home, Self-Care 01 Clinical Impression: UTI, Urinary tract infectious disease, Acute confusion due to infection - Discharge Information Prescriptions: cephALEXin [Cephalexin] 500 mg PO QID #20 tablet Instructions: Urinary Tract Infection, Adult, [id number] Referrals: Melissa Smith, [Primary Care Provider] - Forms: ED Department Discharge Additional Instructions: Make sure and drink plenty of fluids. 10 8 ounce glasses of water a day. Small frequent meals. Cephalexin 1 capsule 4 times a day for the next 5 days. First dose given in the ED and RX sent to [facility] pharmacy. Return to the ED if new or worsening symptoms. Follow up with PCP as already planned next week. Sepsis Event Note (ED) - Evaluation Sepsis Screening Result: No Definite Risk
[2020-06-08 12:33] VITALS: BP 149/97; PULSE 90
== END 2020-06-08 12:22 | disposition home or self-care (01) ==
LOC: VM.ED 10:23
DX: N39.0 Urinary tract infection, site not specified (principal); R41.0 Disorientation, unspecified; I48.91 Unspecified atrial fibrillation; E78.00 Pure hypercholesterolemia, unspecified; I12.9 Hypertensive chronic kidney disease with stage 1 through stage 4 chronic kidney disease, or unspecified chronic kidney disease; N18.9 Chronic kidney disease, unspecified; Z88.5 Allergy status to narcotic agent; Z91.048 Other nonmedicinal substance allergy status; Z79.899 Other long term (current) drug therapy
CPT/HCPCS: 36415; 70450; 80053; 81001; 84484; 85025; 85610; 85730; 87086; 93005; 99284; 99285-25; A9270-GY

== ENCOUNTER 2020-09-06 11:32 | Emergency (ER) | payer MEDICARE, BC ==
[2020-09-06] MEDS ORDERED: Sodium Chloride 0.9% 10 ML Syringe FLUSH PRN (11:42)
[2020-09-06 12:29] LABS: CHLORIDE,CL 101 mmol/L (98-107); SODIUM,NA 144 mmol/L (136-145)
[2020-09-06 12:34] LABS: ANION GAP 13.6 mmol/L (5-15)
[2020-09-06] MEDS: Ondansetron 4 MG/2 ML SDV IVPUSH ONE (13:08)
[2020-09-06] MEDS: Sodium Chloride 0.9% 500 ML IV ONE (13:12)
[2020-09-06] MEDS: Carbidopa/Levodopa 25-100 MG Tab PO ONE (13:15)
[2020-09-06] MEDS: Iopamidol 612 MG/ML 100 ML Bottle IVPUSH ONE (13:25)
--- NOTE | 2020-09-06 13:27 | CR ---
[id number] RAD/RAD Chest PA or AP 1V EXAM: FRONTAL CHEST INDICATION: CHEST PAIN, RECENT RIGHT THORACENTESIS. COMPARISON: June 01, 2020. DISCUSSION: Stable cardiomegaly without edema. Small right pleural effusion, decreased. No pneumothorax is identified. Extensive mitral calcifications. Right axillary clips. IMPRESSION: 1. Small right pleural effusion. No pneumothorax. Yuri Perez MD 09/06/20 [id number] Thank you for allowing us to participate in the care of your patient.
--- NOTE | 2020-09-06 14:16 | CT ---
[id number] CT/CT Abdomen Pelvis W IV EXAM: CT Abdomen Pelvis W IV CLINICAL DATA: NAUSEA AND VOMITING ABDOMINAL PAIN ELEVATED LACTIC ACID COMPARISON: CORRELATION IS MADE WITH THE EXAM OF MAY 30, 2013 FINDINGS: There is a moderate right pleural effusion. The liver and spleen, aorta, adrenals, kidneys, pancreas, are unremarkable The gallbladder has been removed. Surgical changes are seen in the pelvis The pelvis shows no mass or adenopathy The endometrium is abnormally prominent. This is stable however since the last CAT scan. There are subtle blastic changes involving the bony pelvis and An occasional renal cyst is seen There are heavy vascular calcifications There appear to be embolization coils, surgical clip, or foreign body in the left side of the retroperitoneum. This was previously present Lack of arterial visceral opacification likely is related to the timing of imaging An apparent filling defect in the superior mesenteric artery on image 57, series 6 likely results from artifact secondary to the adjacent metallic densities The metallic densities may represent coils in the inferior mesenteric vein IMPRESSION: NO DEFINITE ACUTE VISCERAL ABNORMALITY APPEARANCE SUGGESTING METASTATIC SCLEROTIC BONE DISEASE Juarez Mcgrath MD 09/06/20 [id number] Thank you for allowing us to participate in the care of your patient.
--- NOTE | 2020-09-06 14:23 | EDM.PDOC ---
ED HPI GENERAL MEDICAL PROBLEM - General Stated Complaint: not feeling well Time Seen by Provider: 09/06/20 11:35 Source of Information: Reports: Patient, Family History Limitations: Reports: No Limitations - History of Present Illness INITIAL COMMENTS - FREE TEXT/NARRATIVE: Patient presents not feeling well since her thoracentesis on SHe has been tired and sleeping a lot, had some nausea and decreased appetite. vomited once today. She did throw up her morning pills today. Is maintained on parkinsons meds, blood thinners for atrial fibrillation. No actual pain, just feeling unwell. Unsure of why she is developing a pleural effusion, but awaiting path on it. History of cancer and CHF. Duration: Day(s): - Related Data Allergies Allergy/AdvReac Type Severity Reaction Status Date / Time adhesive Allergy Rash Verified 06/08/20 12:28 hydrocodone AdvReac Confusion Verified 06/08/20 12:28 Home Meds: Home Meds Cholecalciferol (Vitamin D3) [Vitamin D3] 2,000 unit PO DAILY 06/04/13 [History] Enalapril [Vasotec] 1.5 tab PO DAILY 06/04/13 [History] Latanoprost [Xalatan 0.005% Ophth Soln] 1 drop EYEBOTH ACBED 06/04/13 [History] Multivitamin [Multi-Vitamin Daily] 1 each PO DAILY 06/04/13 [History] PEG 400/Propylene Glycol [Systane Lubricant] 1 drop EYEBOTH Q4H PRN 06/04/13 [History] Carbidopa/Levodopa [Sinemet 25-100 mg Tablet] 1 each PO TID 04/07/17 [History] Carbidopa/Levodopa [Sinemet CR 50-200] 1 each PO BEDTIME 04/07/17 [History] Metoprolol Succinate [Toprol XL] 200 mg PO DAILY 04/07/17 [History] atorvaSTATin [Lipitor] 10 mg PO DAILY 04/07/17 [History] dilTIAZem HCL [Cardizem Cd] 180 mg PO DAILY 04/07/17 [History] Acetaminophen [Tylenol] 500 mg PO Q4HR PRN 06/01/20 [History] Calcium Carbonate [Tums] 500 mg PO QID PRN 06/01/20 [History] Calcium Citrate 200 mg PO BID 06/01/20 [History] Furosemide [Lasix] 20 mg PO DAILY 06/01/20 [History] Melatonin 3 mg PO BEDTIME 06/01/20 [History] Pregabalin [Lyrica] 50 mg PO ASDIRECTED 06/01/20 [History] Sertraline [Zoloft] 50 mg PO DAILY 06/01/20 [History] Apixaban [Eliquis] 5 mg PO BID 09/06/20 [History] ondansetron HCL [Zofran] 4 mg PO Q8HR PRN #15 tablet 09/06/20 [Rx] Past Medical History HEENT History: Reports: Cataract, Glaucoma Cardiovascular History: Reports: Afib, High Cholesterol, Hypertension Respiratory History: Reports: Sleep Apnea Gastrointestinal History: Reports: Diverticulosis Genitourinary History: Reports: Chronic Renal Insuffiency Neurological History: Reports: Parkinson's Endocrine/Metabolic History: Reports: Osteopenia Oncologic (Cancer) History: Reports: Breast, Renal Other Oncologic History: lymphedema - Infectious Disease History Infectious Disease History: Reports: C-Difficile - Past Surgical History GI Surgical History: Reports: Appendectomy, Cholecystectomy, Hernia Repair/Other Musculoskeletal Surgical History: Reports: Hip Replacement Social & Family History - Caffeine Use Caffeine Use: Reports: Coffee Caffeine Use Comment: daily at breakfast ED ROS GENERAL - Review of Systems Review Of Systems: See Below Constitutional: Reports: Malaise, Weakness, Fatigue, Decreased Appetite HEENT: Denies: Eye Discharge, Throat Swelling, Vision Change Respiratory: Reports: Shortness of Breath. Denies: Pleuritic Chest Pain, Cough Cardiovascular: Denies: Chest Pain, Blood Pressure Problem Endocrine: Reports: Fatigue GI/Abdominal: Reports: Anorexia, Nausea, Vomiting. Denies: Abdominal Pain Musculoskeletal: Denies: Neck Pain, Shoulder Pain, Arm Pain Skin: Reports: No Symptoms Neurological: Reports: Dizziness Hematologic/Lymphatic: Reports: Easy Bleeding ED EXAM, GENERAL - Physical Exam Exam: See Below Exam Limited By: No Limitations General Appearance: Alert, No Apparent Distress Eye Exam: Bilateral Eye: EOMI, Normal Inspection, PERRL Nose: Normal Inspection, Normal Mucosa Throat/Mouth: Normal Inspection, Normal Lips, Normal Teeth Head: Atraumatic, Normocephalic Neck: Normal Inspection Respiratory/Chest: No Respiratory Distress, Lungs Clear, Normal Breath Sounds Cardiovascular: Regular Rate, Rhythm, No Murmur GI/Abdominal: Normal Bowel Sounds, Soft Extremities: Normal Range of Motion Neurological: Alert, Oriented, No Motor/Sensory Deficits #1 Interpretation EKG Date: 09/06/20 Time: 11:46 Rhythm: A-Fib QRS: LBBB EKG Interpretation Comments: t neg II, III, AVF, NO STEMI Course - Vital Signs Last Recorded V/S: Last Vital Signs Temp 36.5 C 09/06/20 11:35 Pulse 95 09/06/20 13:45 Resp 16 09/06/20 13:45 BP 107/73 09/06/20 13:45 Pulse Ox 96 09/06/20 13:45 - Orders/Labs/Meds Orders: Active Orders 24 hr Category Date Time Status CULTURE URINE [RM] Stat Lab 09/06/20 14:06 Received Saline Lock Insert [OM.PC] Stat Oth 09/06/20 11:42 Ordered Labs: Laboratory Tests 09/06/20 09/06/20 09/06/20 Range/Units 11:58 11:58 11:58 WBC 5.7 (4.0-10.0) x10^3/uL RBC 5.33 (4.00-5.50) x10^6/uL Hgb 16.2 H D (12.0-16.0) g/dL Hct 46.7 (33.0-47.0) % MCV 87.6 D (78.0-93.0) fL MCH 30.4 (26.0-32.0) pg MCHC 34.7 (32.0-36.0) g/dL RDW Coeff of Nataly 14.3 (10.0-15.0) % Plt Count 194 (130-400) x10^3/uL Neut % (Auto) 79.1 (50.0-80.0) % Lymph % (Auto) 11.8 L (25.0-50.0) % Alfalfa % (Auto) 8.4 (2.0-11.0) % Eos % (Auto) 0.5 (0.0-4.0) % Baso % (Auto) 0.2 (0.2-1.2) % PT (9.9-12.5) SEC INR (2.0-3.5) Sodium 144 (136-145) mmol/L Potassium 3.6 (3.5-5.1) mmol/L Chloride 101 (98-107) mmol/L Carbon Dioxide 33 H (21-32) mmol/L Anion Gap 13.6 (5-15) mmol/L BUN 34 H (7-18) mg/dL Creatinine 1.2 H (0.55-1.02) mg/dL Est Cr Clr Drug Dosing TNP Estimated GFR (MDRD) 43 Glucose 97 (70-99) mg/dL Lactic Acid 2.3 H* (0.4-2.0) mmol/L Calcium 8.8 (8.5-10.1) mg/dL Corrected Calcium 9.3 (8.5-10.1) mg/dL Magnesium 2.1 (1.8-2.4) mg/dL Total Bilirubin 1.5 H (0.2-1.0) mg/dL AST 37 (15-37) U/L ALT 8 L (14-59) U/L Alkaline Phosphatase 115 (46-116) U/L Troponin I High Sens 32 (<=51) ng/L NT-Pro-B Natriuret Pep 1424 H (<=450) pg/mL Total Protein 7.0 (6.4-8.2) g/dL Albumin 3.4 (3.4-5.0) g/dL Globulin 3.6 Albumin/Globulin Ratio 0.94 Lipase 123 (73-393) U/L Urine Color (YELLOW) Urine Appearance (CLEAR) Urine pH (5.0-8.0) Ur Specific [place] Urine Protein (NEGATIVE) mg/dL Urine Glucose (UA) (NEGATIVE) mg/dL Urine Ketones (NEGATIVE) mg/dL Urine Occult Blood (NEGATIVE) Urine Nitrite (NEGATIVE) Urine Bilirubin (NEGATIVE) Urine Urobilinogen (0.2) EU/dL Ur Leukocyte Esterase (NEGATIVE) Urine RBC (NOT SEEN) /HPF Urine WBC (NOT SEEN) /HPF Ur Squamous Epith Cells (NOT SEEN) /HPF Urine Bacteria (NOT SEEN) /HPF Urine Mucus (NOT SEEN) /LPF 09/06/20 09/06/20 Range/Units 11:58 14:06 WBC (4.0-10.0) x10^3/uL RBC (4.00-5.50) x10^6/uL Hgb (12.0-16.0) g/dL Hct (33.0-47.0) % MCV (78.0-93.0) fL MCH (26.0-32.0) pg MCHC (32.0-36.0) g/dL RDW Coeff of Nataly (10.0-15.0) % Plt Count (130-400) x10^3/uL Neut % (Auto) (50.0-80.0) % Lymph % (Auto) (25.0-50.0) % Alfalfa % (Auto) (2.0-11.0) % Eos % (Auto) (0.0-4.0) % Baso % (Auto) (0.2-1.2) % PT 12.7 H (9.9-12.5) SEC INR 1.1 L (2.0-3.5) Sodium (136-145) mmol/L Potassium (3.5-5.1) mmol/L Chloride (98-107) mmol/L Carbon Dioxide (21-32) mmol/L Anion Gap (5-15) mmol/L BUN (7-18) mg/dL Creatinine (0.55-1.02) mg/dL Est Cr Clr Drug Dosing Estimated GFR (MDRD) Glucose (70-99) mg/dL Lactic Acid (0.4-2.0) mmol/L Calcium (8.5-10.1) mg/dL Corrected Calcium (8.5-10.1) mg/dL Magnesium (1.8-2.4) mg/dL Total Bilirubin (0.2-1.0) mg/dL AST (15-37) U/L ALT (14-59) U/L Alkaline Phosphatase (46-116) U/L Troponin I High Sens (<=51) ng/L NT-Pro-B Natriuret Pep (<=450) pg/mL Total Protein (6.4-8.2) g/dL Albumin (3.4-5.0) g/dL Globulin Albumin/Globulin Ratio Lipase (73-393) U/L Urine Color Yellow (YELLOW) Urine Appearance Clear (CLEAR) Urine pH 6.0 (5.0-8.0) Ur Specific [place] 1.015 Urine Protein Negative (NEGATIVE) mg/dL Urine Glucose (UA) Negative (NEGATIVE) mg/dL Urine Ketones Trace H (NEGATIVE) mg/dL Urine Occult Blood Negative (NEGATIVE) Urine Nitrite Negative (NEGATIVE) Urine Bilirubin Negative (NEGATIVE) Urine Urobilinogen 1.0 (0.2) EU/dL Ur Leukocyte Esterase Small H (NEGATIVE) Urine RBC 0-5 (NOT SEEN) /HPF Urine WBC 0-5 (NOT SEEN) /HPF Ur Squamous Epith Cells Few H (NOT SEEN) /HPF Urine Bacteria Few H (NOT SEEN) /HPF Urine Mucus Rare H (NOT SEEN) /LPF Meds: Medications Discontinued Medications Generic Name Dose Route Start Last Admin Trade Name Freq PRN Reason Stop Dose Admin Carbidopa/Levodopa 1 tab 09/06/20 11:46 09/06/20 13:15 Carbidopa/Levodopa 25-100 Mg Tab PO 09/06/20 11:47 1 tab ONETIME ONE Administration Sodium Chloride 500 mls @ 500 mls/hr 09/06/20 13:01 09/06/20 13:12 Normal Saline IV 09/06/20 14:00 500 mls/hr ONETIME ONE Administration Iopamidol 100 ml 09/06/20 13:20 09/06/20 13:25 Iopamidol 612 Mg/Ml 100 Ml Bottle IVPUSH 09/06/20 13:21 100 ml ONETIME ONE Administration Ondansetron HCl 4 mg 09/06/20 11:44 09/06/20 13:08 Ondansetron 4 Mg/2 Ml Sdv IVPUSH 09/06/20 11:45 4 mg ONETIME ONE Administration Sodium Chloride 10 ml 09/06/20 11:42 Sodium Chloride 0.9% 10 Ml Syringe FLUSH ASDIRECTED PRN Keep Vein Open - Radiology Interpretation Free Text/Narrative:: CT abdomen pelvis with IV, moderate right pleural effusion, surgical changes chronic, appearanceof metastic sclerotic bone disease. interpreted by radiology, chest x-ray without pneumothorax - Re-Assessments/Exams Free Text/Narrative Re-Assessment/Exam: 09/06/20 14:24 IV normal saline 500 cc bolus, zofran 4 mg IVP, will check labs, urine and ct abdomen and pelvis with IV contrast, given her dose of sinemet 09/06/20 19:39 Patient was advised of the concern for metastatic bone disease. She was advised to await the pathology for thoracentesis, consider a bone marrow biopdy. She states she is not interested in perusing this. Has battled cancer in the past. Daughter and son present at time. Will send home with follow up with PCP Departure - Departure Time of Disposition: 14:49 Disposition: Home, Self-Care 01 Clinical Impression: Malaise and fatigue, Bone metastases, Pleural effusion - Discharge Information *PRESCRIPTION DRUG MONITORING PROGRAM REVIEWED*: Not Applicable *COPY OF PRESCRIPTION DRUG MONITORING REPORT IN PATIENT MICHELLE: Not Applicable Prescriptions: ondansetron HCL [Zofran] 4 mg PO Q8HR PRN #15 tablet PRN Reason: Nausea Instructions: Pleural Effusion Referrals: Melissa Smith DO [Primary Care Provider] - Forms: ED Department Discharge Additional Instructions: Use the zofran as needed for nausea. Hydrate well, use a protein supplement or drink like boost or ensure if not eating. Follow up with PCP and oncology as to the fluid analysis. See PCP for care regarding metastatic bone disease. Return as needed. Sepsis Event Note (ED) - Focused Exam Vital Signs: Vital Signs Temp Pulse Resp BP Pulse Ox 09/06/20 13:45 95 16 107/73 96 09/06/20 11:35 36.5 C 94 18 128/88 97 - My Orders Last 24 Hours: My Active Orders 09/06/20 11:42 Saline Lock Insert [OM.PC] Stat 09/06/20 14:06 CULTURE URINE [RM] Stat - Assessment/Plan Last 24 Hours: My Active Orders 09/06/20 11:42 Saline Lock Insert [OM.PC] Stat 09/06/20 14:06 CULTURE URINE [RM] Stat
[2020-09-06 18:30] VITALS: BP 107/73; PULSE 95
== END 2020-09-06 15:15 | disposition home or self-care (01) ==
LOC: VM.ED 11:32
DX: J90 Pleural effusion, not elsewhere classified (principal); C41.9 Malignant neoplasm of bone and articular cartilage, unspecified; R53.81 Other malaise; R53.83 Other fatigue; I48.91 Unspecified atrial fibrillation; E78.00 Pure hypercholesterolemia, unspecified; I10 Essential (primary) hypertension; Z79.01 Long term (current) use of anticoagulants; Z79.899 Other long term (current) drug therapy; Z91.048 Other nonmedicinal substance allergy status; Z88.5 Allergy status to narcotic agent
CPT/HCPCS: 36415; 71045; 74177; 80053; 81001; 83605; 83690; 83735; 83880; 84484; 85025; 85610; 87086; 93005; 93010; 96374; 99284; 99285-25; A9270-GY; J2405; J7030; Q9967